=== PATIENT | male | born 1995 | race Caucasian/White ===

== ENCOUNTER 2017-02-10 10:08 | Emergency (ER) | payer SELFPAY ==
[2017-02-10] MEDS ORDERED: NORMAL SALINE 1000 ML 1,000 ML IV PRN (10:39)
--- NOTE | 2017-02-10 10:48 | ER Document Report ---
ED General - General Chief Complaint: Altered Mental Status Stated Complaint: ALTERED MENTAL STATUS Time Seen by Provider: 02/10/17 10:29 Mode of Arrival: Medic Information source: Patient, Emergency Med Personnel Notes: This is a 21-year-old man who is brought in by EMS after he was found wandering confused. The patient was outside in his underwear in the freezing cold. Patient states he does not remember why he is here or what happened. He denies any pain. He does state that he feels cold. I have spoken to a friend called Pascual Shoemaker ([phone]) who is on his way to the hospital. 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 He does state that the patient has had a drug problem in the past but has no idea why he is in [place]. The patient is from [place]. The patient does live with his grandmother ([phone]). I have attempted to call both the grandmother and the mother ([phone]) and there is no answer to either phone. TRAVEL OUTSIDE OF THE [place] IN LAST 30 DAYS: No - HPI Onset: Just prior to arrival Onset/Duration: Gradual Quality of pain: No pain Severity: None Pain Level: Denies Associated symptoms: None Exacerbated by: Denies Relieved by: Denies Similar symptoms previously: No Recently seen / treated by doctor: No - Related Data Allergies/Adverse Reactions: No Known Allergies Allergy (Unverified 02/10/17 11:02) Past Medical History - General Information source: Patient - Social History Smoking Status: Unknown if Ever Smoked Cigarette use (# per day): No Chew tobacco use (# tins/day): No Frequency of alcohol use: Occasional Drug Abuse: Other Lives with: Family Family History: Reviewed & Not Pertinent Patient has suicidal ideation: No Patient has homicidal ideation: No - Medical History Medical History: Negative Renal/ Medical History: Denies: Hx Peritoneal Dialysis Surgical Hx: Negative Review of Systems - Review of Systems Constitutional: denies: Chills, Fever EENT: No symptoms reported Cardiovascular: No symptoms reported Respiratory: No symptoms reported Gastrointestinal: No symptoms reported Genitourinary: No symptoms reported Male Genitourinary: No symptoms reported Musculoskeletal: No symptoms reported Skin: No symptoms reported Hematologic/Lymphatic: No symptoms reported Neurological/Psychological: See HPI Physical Exam - Vital signs Vitals: Pulse Ox 96 02/10/17 10:16 Notes: Physical exam: GENERAL: 21-year-old man, alert but he is confused to events of last night or while he was found wandering in the street. HEAD: Atraumatic, normocephalic. EYES: Pupils equal round and reactive to light, extraocular movements intact, sclera anicteric, conjunctiva are normal. ENT: TMs normal, nares patent, oropharynx clear without exudates. Moist mucous membranes. NECK: Normal range of motion, supple without obvious mass or JVD. LUNGS: Breath sounds clear to auscultation bilaterally and equal. No wheezes rales or rhonchi. HEART: Regular rate and rhythm without murmurs, rubs or gallops. ABDOMEN: Soft, normoactive bowel sounds. No tenderness to palpation. No guarding, no rebound. No masses appreciated. EXTREMITIES: Normal range of motion, no pitting or edema. No clubbing or cyanosis. NEUROLOGICAL: Cranial nerves II through XII grossly intact. Normal speech, moving all extremities. PSYCH: Normal mood, normal affect. SKIN: Warm, Dry, normal turgor, no rashes or lesions noted. Course - Re-evaluation Re-evalutation: 02/10/17 15:40 Patient observed at the emergency room. His mentation has improved. The patient does admit to doing some drugs and does not remember much after. In any event, he feels good enough to go home and family friend (Pascual Shoemaker) will bring him home. - Vital Signs Vital signs: Temp Pulse Resp BP Pulse Ox 98.8 F 105 H 22 H 106/64 98 02/10/17 12:00 02/10/17 10:22 02/10/17 15:01 02/10/17 15:00 02/10/17 15:01 - Laboratory Result Diagrams: 02/10/17 10:50 02/10/17 10:50 Laboratory results interpreted by me: 02/10/17 02/10/17 02/10/17 10:50 10:50 13:05 WBC 11.0 H Lymphocytes % 11.7 L Absolute Neutrophils 8.5 H Calcium 10.4 H Direct Bilirubin 0.5 H ALT 17 L Urine Ketones 20 H Urine Ascorbic Acid 40 H Salicylates < 1.0 L Acetaminophen < 10 L - Diagnostic Test Radiology reviewed: Image reviewed, Reports reviewed - CT of the head shows no acute bleed. - EKG Interpretation by Me Rate: Normal Rhythm: NSR - EKG shows normal sinus rhythm with a ventricular rate of 80, no acute ST-T wave changes Discharge - Discharge Clinical Impression: Altered mental status Condition: Stable Disposition: HOME, SELF-CARE Additional Instructions: Your labs look good today. The urine drug screen was positive for opiates. And it is suspected that there was something else that we were unable to measure. In any event, I would take it easy over the next few days. I would like you to seriously consider avoiding any type of drugs and may be seeking counseling for substance misuse. [facility] [address] [facility] [place], [place] Crisis Response: [phone] Outpatient services: [phone] Accepts self pay Turn to the ER for any worsening mental status changes or concerns or getting worse. Referrals: LOCALMD,NO [Primary Care Provider] - Follow up as needed
[2017-02-10 11:07] LABS: ABSOLUTE EOSINOPHILS # (AUTO) 0.1 10^3/uL (0.0-0.6); ABSOLUTE LYMPHOCYTES (AUTO) 1.3 10^3/uL (0.5-4.7); ABSOLUTE NEUT (AUTO) 8.5 10^3/uL (1.7-8.2); BASOPHILS % (AUTO) 0.2 % (0-2); EOSINOPHILS % (AUTO) 1.1 % (0-6); HEMATOCRIT 48.1 % (37.9-51.0); HEMOGLOBIN 16.9 g/dL (13.5-17.0); LYMPHOCYTES % (AUTO) 11.7 % (13-45); MEAN CORPUSCULAR HEMOGLOBIN 31.6 pg (27.0-33.4); MEAN CORPUSCULAR VOLUME 90 fl (80-97); MONOCYTES % (AUTO) 9.5 % (3-13); PLATELET COUNT 215 10^3/uL (150-450); RED BLOOD COUNT 5.34 10^6/uL (4.35-5.55); RED CELL DISTRIBUTION WIDTH 13.2 % (11.5-14.0); SEGMENTED NEUTROPHILS % (AUTO) 77.5 % (42-78); TOTAL CELLS COUNTED % (AUTO) 100 %
[2017-02-10 11:23] LABS: ALANINE AMINOTRANSFERASE 17 U/L (21-72); ALBUMIN 4.9 g/dL (3.5-5.0); ALKALINE PHOSPHATASE 98 U/L (38-126); ANION GAP 14 (5-19); ASPARTATE AMINO TRANSFERASE 39 U/L (17-59); BILIRUBIN,DIRECT 0.5 mg/dL (0.0-0.4); BLOOD UREA NITROGEN 14 mg/dL (7-20); CALCIUM 10.4 mg/dL (8.4-10.2); CARBON DIOXIDE 24 mmol/L (22-30); CHLORIDE 103 mmol/L (98-107); GLUCOSE 85 mg/dL (75-110); POTASSIUM 4.7 mmol/L (3.6-5.0); SODIUM 141.1 mmol/L (137-145); TOTAL PROTEIN 7.8 g/dL (6.3-8.2)
[2017-02-10 11:30] LABS: ACETAMINOPHEN < 10 ug/mL (10-30); ALCOHOL < 10 mg/dL (NONE DETECTED); SALICYLATE < 1.0 mg/dL (2.0-20.0)
--- NOTE | 2017-02-10 11:34 | RADIOLOGY REPORT (SQ) ---
EXAM DESCRIPTION: CT HEAD WITHOUT COMPLETED DATE/TIME: 02/10/2017 11:23 am REASON FOR STUDY: encephalopathy COMPARISON: None. TECHNIQUE: Axial images acquired through the brain without intravenous contrast. Images reviewed wi th bone, brain and subdural windows. Images stored on PACS. All CT scanners at this facility use dose modulation, iterative reconstruction, and/or weight based d osing when appropriate to reduce radiation dose to as low as reasonably achievable (ALARA). [facility]: Dose Right [facility]: CareDose [facility]: Dose Right [facility]: Teradose 4D [facility]: Coco Controller RADIATION DOSE: CT Rad equipment meets quality standard of care and radiation dose reduction techniq ues were employed. CTDIvol: 64.6 mGy. DLP: 1163 mGy-cm. mGy. LIMITATIONS: None. FINDINGS: VENTRICLES: Normal size and contour. CEREBRUM: No masses. No hemorrhage. No midline shift. No evidence for acute infarction. Normal gra y/white matter differentiation. No areas of low density in the white matter. CEREBELLUM: No masses. No hemorrhage. No alteration of density. No evidence for acute infarction. EXTRAAXIAL SPACES: No fluid collections. No masses. ORBITS AND GLOBE: No intra- or extraconal masses. Normal contour of globe without masses. CALVARIUM: No fracture. PARANASAL SINUSES: No fluid or mucosal thickening. SOFT TISSUES: No mass or hematoma. OTHER: No other significant finding. IMPRESSION: NORMAL BRAIN CT WITHOUT CONTRAST. EVIDENCE OF ACUTE STROKE: NO. COMMENT: Quality ID # [id number]: Final reports with documentation of one or more dose reduction techniques (e.g., Automated exposure control, adjustment of the mA and/or kV according to patient size, use of iterative reconstruction technique) TECHNICAL DOCUMENTATION: JOB ID: [id number]- All Rights Reserved
[2017-02-10 13:13] LABS: APPEARANCE,URINE SLIGHTLY-CLOUDY; BILIRUBIN,URINE NEGATIVE (NEGATIVE); COLOR,URINE YELLOW; GLUCOSE, URINE NEGATIVE (NEGATIVE); KETONES,URINE 20 mg/dL (NEGATIVE); LEUKOCYTE ESTERASE,URINE NEGATIVE (NEGATIVE); NITRITE,URINE NEGATIVE (NEGATIVE); PROTEIN,URINE NEGATIVE (NEGATIVE); URINE SPECIFIC GRAVITY 1.015; UROBILINOGEN,URINE NEGATIVE mg/dL (<2.0)
[2017-02-10 13:27] LABS: URINE BARBITURATES SCREEN NEGATIVE; URINE BENZODIAZEPINES SCREEN NEGATIVE; URINE COCAINE SCREEN NEGATIVE; URINE MARIJUANA (THC) SCREEN UNCONFIRMED POSITIVE; URINE METHADONE SCREEN NEGATIVE; URINE PHENCYCLIDINE SCREEN NEGATIVE
[2017-02-10 15:57] VITALS: BP 106/64
--- NOTE | 2017-02-11 09:34 | EKG REPORT ---
SEVERITY:- NORMAL ECG - SINUS RHYTHM : Confirmed by: Peg Pantoja 11-Feb-2017 09:34:13
== END 2017-02-10 16:09 | disposition home or self-care (01) ==
LOC: ER 10:08
DX: R41.0 Disorientation, unspecified (principal); R41.3 Other amnesia
CPT/HCPCS: 93005; 99285; 96360; 96361; 36415; 80307 ×4; 84443; 85025; 80053; 81001; 70450; 93010; J7030